=== PATIENT | female | born 1980 | race Caucasian/White ===

== ENCOUNTER → 2019-07-29 | Outpatient (CLI) | payer BC ==
[2015-11-19 12:17] VITALS: BP 104/66
[~2019-07-29] MED LIST: ALPR0.5T; ALPR0.5T PO; DULO30CA2 PO; FLUT9.9S NS; GABA300C18 PO; HYDR-2761 PO; IBUP-1060 PO; LISD40CA3 PO; ROPI0.25; ROPI5TAB PO; TRAM50TA PO; VENL150C PO; VENL75CA
--- NOTE | 2019-07-29 09:50 | KCIC ---
MRI Cervical Spine Without Contrast History:Worsening symptoms, neck pain for 5 years, bilateral upper extremity numbness, cervicalgia Technique: Multiplanar, multi sequential noncontrast MR imaging was performed of the cervical spine. Comparison: Outside facility exam July 16, 2013 Findings: There is mild motion degradation. Cervical vertebral body stature is overall maintained. There is moderate degenerative disc disease C5-6. There is again negligible posterior subluxation C5 relative to C6. There is straightening of the cervical spine, very minimal reversal of the lordotic curvature centered near C5-6. There is no significant focal marrow edema. There are anterior and posterior annular tears at C5-C6. Cervical cord caliber is within normal limits. There is appearance of subtle increased T2 and STIR signal of the cord such as C3-C5 as seen on the sagittal images, poorly delineated on the axial images, cannot accurately compare with the previous low-field strength magnet images. C2-C3: Neural foramina and spinal canal are adequate. C3-C4: Neural foramina and spinal canal are adequate. C4-C5: Neural foramina and spinal canal are adequate. There is minimal facet degenerative change. C5-C6: There is again disc osteophyte complex and bulge. Central canal is minimally narrowed about 9 mm. There is bilateral facet degenerative change. There is uncovertebral degenerative change bilaterally somewhat greater on the left. There is increased at least moderate left and mild right neural foramina compromise. C6-C7: Neural foramina and spinal canal are adequate. There is facet degenerative change. C7-T1: Spinal canal and neural foramina are adequate. Impression: 1. There is mild spinal stenosis at C5-6. There is at least moderate left and mild right C5-6 neural foramina compromise due to facet and uncovertebral degenerative change. 2. There is moderate degenerative disc disease at C5-6, also spondylosis at this level. There is again negligible posterior subluxation of C5 relative to C6. 3. As seen on the sagittal images although poorly seen on axial images, there is appearance of subtle increased T2 and STIR signal of the cord C3-C5. If true finding, sequela of an inflammatory demyelinating disease would be a consideration. Electronically signed by: Usman Stephens MD (07/29/2019 9:47 AM) [id number]
== END | disposition home or self-care (01) ==
LOC: KCIC MRI 08:40
PROVIDERS: ATTEND Physician Assistant Medical
DX: M48.02 Spinal stenosis, cervical region (principal); M47.892 Other spondylosis, cervical region; M50.322 Other cervical disc degeneration at C5-C6 level; M40.40 Postural lordosis, site unspecified; M25.78 Osteophyte, vertebrae
CPT/HCPCS: 72141